=== PATIENT | female | born 1955 | race Asian ===

== ENCOUNTER 2022-01-10 21:13 | Emergency (ER) | payer MEDICARE, MEDICAID ==
[2022-01-10] MEDS ORDERED: Ketorolac 30 MG/ML SDV IVPUSH ONE (21:40)
[2022-01-10 22:15] LABS: TROPONIN I HIGH SENSITIVITY 13.9 pg/mL (<=60.3)
[2022-01-10] MEDS ORDERED: HYDROmorphone 0.5 MG/0.5 ML Syringe IVPUSH ONE (22:43)
== END 2022-01-10 23:26 | disposition home or self-care (01) ==
LOC: JP.ED 21:13
DX: M62.838 Other muscle spasm (principal); Z79.899 Other long term (current) drug therapy
CPT/HCPCS: 36415; 71046; 80053; 84484; 85025; 93005; 96374; 96375; 99285-25; J1170; J1885